=== PATIENT | male | born 1990 | race Two or more races ===

== ENCOUNTER 2020-10-09 17:41 | Emergency (ER) | payer MEDICAID, OTHER ==
[~2020-10-09] VITALS: Ht 177.8 cm; Wt 93.0 kg
[2020-10-09] MEDS ORDERED: HYDROcodone-ACET 10/325MG TAB PO ONE (19:00)
[2020-10-09] MEDS ORDERED: ONDANSETRON ODT 4 MG TAB PO ONE (19:00)
== END 2020-10-09 19:41 | disposition home or self-care (01) ==
LOC: ER 17:41
DX: S20.211A Contusion of right front wall of thorax, initial encounter (principal); Z87.81 Personal history of (healed) traumatic fracture; V49.49XA Driver injured in collision with other motor vehicles in traffic accident, initial encounter; Y93.89 Activity, other specified; Y92.410 Unspecified street and highway as the place of occurrence of the external cause; Y99.8 Other external cause status
CPT/HCPCS: 71101; 71250; 99284; Q0162